=== PATIENT | female | born 1975 | race Two or more races ===

== ENCOUNTER 2025-01-24 17:56 | Inpatient (IN) | payer MEDICAID, OTHER ==
[~2025-01-24] VITALS: Ht 157.5 cm; Wt 72.2 kg
[2025-01-24] MEDS: ACETAMINOPHEN 325 MG TAB PO STA (18:30)
[2025-01-24] MEDS: ACETAMINOPHEN 500 MG TAB or CAP PO STA (18:30)
--- NOTE | 2025-01-24 18:51 | ED.PDOC ---
GI ASSESSMENT HPI Comments 49-year-old female presents with a chief complaint of abdominal pain, back pain, fever, and weakness x 3 days. Patient states that her pain is localized to her LLQ, radiates down her bilateral lower back, rates her pain a 10/10 and describes as cramping sensation. Patient denies any injuries or trauma prior to onset of symptoms. Patient denies nausea, vomiting, and diarrhea. Patient mentions that this pain feels similar to the last time she had a diverticulitis flare up. PMHx: Diverticulitis PSHx: Cholecystectomy, Tubal Ligation HPI: Poor Historian. REVIEW OF SYSTEMS: CONSTITUTIONAL: Denies acute: diaphoresis, chills, HEAD: Denies acute: headache, photophobia Eyes: Denies acute: Double vision, vision loss, eye pain, eye discharge. EARS: Denies acute: tinnitus, hearing loss, ear discharge, ear pain, THROAT: Denies acute: sore throat, swelling, difficulty swallowing , pain with swallowing, change in voice. NECK: Denies acute: neck pain, neck swelling, stiff neck. HEART: Denies acute : chest pain, palpitations, LUNGS: Denies acute: SOB, wheezing, cough, hemoptysis ABDOMEN: Denies acute: Nausea, Vomiting, diarrhea, melena , hematemesis, hematochezia SKIN: Denies acute: rash, redness, lesions, itchiness. EXTREMITIES: Denies acute: calf pain, numbness, tingling, weakness, denies pain in extremity. Neuro: Denies acute: focal neurological deficit, motor or sensory focal neurological deficit, tremors, seizure like activity, confusion, dizziness, change in mental status, loss of bowel or bladder function, cauda equina like symptoms. : Denies acute: dysuria, hematuria, flank pain, increase in urinary frequency. PSYCH: Denies acute: hallucination, suicidal ideation, homicidal ideation. FEMALE: Denies acute: abnormal vaginal bleeding, foul odor, unusual discharge. PHYSICAL EXAM: General: ---moderate-----acute distress, awake and alert. Head: normocephalic, atraumatic. Neck: supple, trachea is midline, no swelling. Throat: Normal phonation. Eyes:, no erythema, no purulent discharge, no proptosis, no icterus. Heart: regular tachycardic, no significant murmur appreciated. Lungs: no apparent respiratory distress, Able to speak in full sentences. No wheezing, no rhonchi, no crackles. No stridors Clear to auscultation bilaterally. Abdomen: Left upper and lower lower quadrant tender to palpation, non distended, soft, no guarding, no rebound, + bowel sounds. Neuro: Awake, Alert, oriented to name, self, situation, follows commands GCS=15. Speech is normal. Skin: no petechia, no purpura, no cyanosis, non-pale, not jaundice. Lower extremities: --no - Pitting edema no deformity, no focal swelling, no calf TTP. Makes eye contact. moves all four extremities. Face: no apparent facial droop. Left CVA tenderness to percussion Ambulating in the ED independently. No nuchal rigidity, Kernig's sign, Brudzinski's sign, no meningeal signs. ED COURSE: Chief Complaint: Abdominal Pain Time Seen by MD: 18:41 Primary Care Provider: STEPHANE Tan Notes: Medications, Allergies Allergies: Coded Allergies: NO KNOWN ALLERGIES (Unverified , 01/24/25) Home Meds No Active Prescriptions or Reported Meds Information Source: Patient Mode of Arrival: Ambulatory Past Medical History PAST MEDICAL HISTORY: Denies Surgical History: Cholecystectomy, Tubal Ligation RECRUITER History: Denies all RECRUITER Hx Family History Family History: Reviewed,noncontributory to illness Social History Smoker: Non-Smoker Alcohol: Denies ETOH Use Drugs: Denies Drug Use Lives In: Home Was a procedure done? Was a procedure done?: No GI differential Dx Differential Diagnosis: Other (DDX include Diverticulitis, colitis, gastroenteritis, acute abdomen, SBO, enteritis, constipation, volvulus, appendicitis, Gallbladder disease, choledocolithiasis, ascending cholangitis, pancreatitis, intraAbdominal mass/neoplasm, hepatitis, UTI, pylonephritis, kidney stone, aneurysm, dissection, Inflammatory bowel disease, gastroparesis, ischemic bowel, ovarian torsion, ovarian cyst/mass, tubo-ovarian abscess, , ectopic , PID, STD.) X-Ray, Labs, Meds, VS Vital Signs Date Time Temp Pulse Resp B/P (MAP) Pulse Ox O2 Delivery O2 Flow Rate FiO2 01/24/25 21:05 89 17 96 Room Air* 0 21 01/24/25 20:56 120/87 01/24/25 20:13 98.2 97 20 120/87 (98) 97 98.2 01/24/25 20:13 97 20 97 Room Air 01/24/25 18:30 101.3 01/24/25 18:17 101.3 115 16 139/95 (110) 96 101.3 Lab Test 01/24/25 18:48 01/24/25 18:14 Range/Units White Blood Count 12.3 H 4.4-10.8 10^3/uL Red Blood Count 4.65 4.0-5.20 10^6/uL Hemoglobin 12.9 12.2-16.2 g/dL Hematocrit 38.9 36.0-46.0 % Mean Corpuscular Volume 83.8 80.0-100.0 fL Mean Corpuscular Hemoglobin 27.7 L 28.0-32.0 pg Mean Corpuscular Hemoglobin Concent 33.0 32.0-36.0 g/dL Red Cell Distribution Width 14.3 11.8-14.3 % Platelet Count 324 140-450 10^3/uL Mean Platelet Volume 8.7 6.9-10.8 fL Neutrophils (%) (Auto) 76.3 37.0-80.0 % Lymphocytes (%) (Auto) 17.0 10.0-50.0 % Monocytes (%) (Auto) 5.9 0.0-12.0 % Eosinophils (%) (Auto) 0.4 0.0-7.0 % Basophils (%) (Auto) 0.4 0.0-2.0 % Neutrophils # (Auto) 9.4 H 1.6-8.6 10 ^3/uL Lymphocytes # (Auto) 2.1 0.4-5.4 10 ^3/uL Monocytes # (Auto) 0.7 0-1.3 10 ^3/uL Eosinophils # (Auto) 0 0-0.8 10 ^3/uL Basophils # (Auto) 0.1 0-0.2 10 ^3/uL Nucleated Red Blood Cells 0.0 % Sodium Level 139 136-145 mmol/L Potassium Level 3.7 3.5-5.1 mmol/L Chloride Level 103 98-107 mmol/L Carbon Dioxide Level 26 20-31 mmol/L Anion Gap 10 5-15 Blood Urea Nitrogen 9 9-23 mg/dL Creatinine 0.68 0.550-1.02 mg/dL Glomerular Filtration Rate Calc 108 >90 mL/min BUN/Creatinine Ratio 13.2 10.0-20.0 Serum Glucose 91 74-106 mg/dL Hemoglobin A1c 5.5 <5.7 % A1C Lactic Acid Level 0.8 0.4-2.0 mmol/L Calcium Level 9.8 8.7-10.4 mg/dL Total Bilirubin 1.0 0.2-1.0 mg/dL Aspartate Amino Transferase (AST) 38 13-40 U/L Alanine Aminotransferase (ALT) 95 H 7-40 U/L Alkaline Phosphatase 146 H 46-116 U/L Troponin I High Sensitivity < 3 L </=34 ng/L Total Protein 8.1 5.7-8.2 g/dL Albumin 4.7 3.2-4.8 g/dL Triglycerides Level 116 < 150 mg/dL Cholesterol Level 198 < 200 mg/dL LDL Cholesterol 146 H < 100 mg/dL HDL Cholesterol 41 40-59 mg/dL Lipase 30 12-53 U/L Urine Color Light-yellow Yellow Urine Clarity Clear Clear Urine pH 7.5 5.0-9.0 Urine Specific [place] 1.010 1.001-1.035 Urine Protein Negative Negative Urine Ketones Negative Negative Urine Blood 2+ H Negative /uL Urine Nitrite Negative Negative Urine Bilirubin Negative Negative Urine Urobilinogen Normal Negative mg/dL Urine Leukocyte Esterase Negative Negative /uL Urine RBC 34 0 - 4 /hpf Urine Microscopic WBC 1 0-5 /HPF Urine Squamous Epithelial Cells Few <5 /hpf Urine Bacteria Few H None Seen /hpf Urine Glucose Normal Normal mg/dL Urine Opiates Screen Neg NEGATIVE Urine Fentanyl Screen Neg NEGATIVE Urine Barbiturates Screen Neg NEGATIVE Urine Phencyclidine Screen Neg NEGATIVE Urine Amphetamines Screen Neg NEGATIVE Urine Benzodiazepines Screen Neg NEGATIVE Urine Cocaine Screen Neg NEGATIVE Urine Cannabinoids Screen Neg NEGATIVE Current Medications Medications (Trade) Dose Ordered Sig/Mickey Route Start Time Stop Time Status Last Admin Acetaminophen (Tylenol Tablet) 650 mg ONCE STAT PO 01/24/25 18:26 01/24/25 18:27 DC 01/24/25 18:30 Sodium Chloride 1,000 ml @ 1,000 mls/hr Q1H ONCE IV 01/24/25 18:45 01/24/25 19:44 DC 01/24/25 20:57 Ondansetron HCl (Zofran) 8 mg ONCE ONCE IV 01/24/25 18:45 01/24/25 18:53 DC 01/24/25 20:57 Fentanyl Citrate 100 mcg ONCE ONCE IV 01/24/25 18:45 01/24/25 18:53 DC 01/24/25 20:56 Ciprofloxacin 200 ml @ 200 mls/hr ONCE ONCE IV 01/24/25 19:30 01/24/25 20:29 DC 01/24/25 20:56 Metronidazole 100 ml @ 100 mls/hr ONCE ONCE IV 01/24/25 20:30 01/24/25 21:29 DC 01/24/25 20:56 [place] [id number] Ph: [phone] DIAGNOSTIC IMAGING Diagnostic Imaging Report : [id number] Signed PATIENT: LEXIE JEAN BAPTISTE ACCT: [id number] UNIT: [id number] : 1975 LOC: ER ROOM / BED: / AGE / SEX: 49 / F ADM STATUS: REG ER SERVICE [id number] ORDERING PHYSICIAN: GLENIS SANTOS DO PROCEDURE(s): ABPL - CT AB PEL WO CON-NO ORAL OR IV REASON: LLQ PAIN, ORDER NUMBER(s): [id number], ACCESSION NUMBER(s): [id number] Exam: CT CT AB PEL WO CON-NO ORAL OR IV History: LLQ PAIN, Comparison Study: None TECHNIQUE: Multidetector CT of the abdomen was performed from lung bases to pubic symphysis. Imaging was performed without IV contrast. Axial, coronal and sagittal multiplanar reformats were obtained from the axial data set by the technologist. Radiation Dose Information: CT Dose: CTDI volume is 19.98 mGy. Dose-length product is 1130.58 mGy*cm FINDINGS: Evaluation of solid organs is limited due to lack of intravenous contrast use. Findings: Lung Bases: No acute or significant lung base finding. Normal heart size. No pleural or pericardial effusion. Liver: The liver is normal in size. No focal lesions. Gallbladder and Biliary Tree: Gallbladder has been surgically removed. Spleen: Unremarkable Pancreas: The pancreas is grossly normal in appearance. Adrenal Glands: Unremarkable Kidneys: Kidneys are grossly normal without calculi or hydronephrosis. Bladder: Grossly unremarkable for degree of distention. Bowel: The stomach is grossly normal in appearance. Diverticuli in the descending left colon with stranding in the surrounding mesenteric fat suggesting diverticulitis. Air or free fluid. This is visualized in series 2 images 30- 46 The appendix is not visualized; however, no secondary findings of acute appendicitis identified. Ascites: Absent Lymphadenopathy: No mesenteric, retroperitoneal or periportal lymphadenopathy. Abdominal Wall and Mesentery: Unremarkable. Vasculature: The visualized abdominal aorta is normal in size and caliber. Evaluation of abdominal and pelvic vessels is limited due to lack of intravenous contrast. Pelvic Organs: Unremarkable Musculoskeletal: No aggressive focal bony lesions, acute fractures or dislocation. Soft tissues: Unremarkable IMPRESSION: 1. Uncomplicated diverticulitis mid left colon. There is no free air or free fluid. (series 2 images 30- 46). Radiation optimization: All CT scans at this facility use at least one of these dose optimization techniques: automated exposure control mA and/or kV adjustment per patient size (includes targeted exams where dose is matched to clinical indication) or iterative reconstruction. ATED BY: EDWIN RUIZ Jr., DO DICTATED DATE/TIME: 01/24/251957 SIGNED BY: EDWIN RUIZ Jr., SIGNED DATE/TIME: 01/24/251957 CC: Time of 1ST Reevaluation: 19:11 Reevaluation 1ST: Unchanged Patient Education/Counseling: Diagnosis, Treatment Family Education/Counseling: No Family Present Comments Patient presented with the above HPI.-abdominal pain-----workup was initiated. patient was found with the above mentioned diagnosis. the following medications were ordered: please refer to order lists of meds and tests obtained by myself Dr. Santos. Patient ED course and VS have been stabilized. Patient has been reassessed in the ED and remained in a stable condition. Pertinent incidental findings were discussed with the patient and/or family. Patient/family voices understanding and is agreeable with plan. Patient has been observed in the ED adequate length of time to insure improvement/stability. Escalation of care considered: Consideration of escalation to observation or admission Sepsis protocol was initiated with weight based fluid resuscitation. Patient was ADMITTED to the medicine team for further evaluation and treatment of their presentation. All the reports of any imaging studies that were ordered by myself were reviewed by myself. Departure 1 Departure Time of Disposition: 19:27 Impression: Primary Impression: Sepsis Additional Impressions: Fever Diverticulitis of intestine Disposition: ADMITTED INPATIENT Admit to: Tele Condition: Guarded e-Prescriptions No Active Prescriptions or Reported Meds Discharged With: Self Critical Care Note Critical Care Time?: Yes (45 min-critical care time only) Heart Score Heart Score: Heart Score Response (Comments) Value History Slightly Suspicious 0 EKG Normal 0 Age 45-64 1 Risk Factors No known risk factors 0 Troponin Normal limit 0 Total 1 I personally scribed for GLENIS SANTOS DO ([email or web address]) on 01/24/25 at 18:50. Electronically submitted by Dilip Mobley ([email or web address]). GLENIS SANTOS DO Jan 24, 2025 18:50
[2025-01-24 19:22] LABS: Basophils # (auto) 0.1 10 ^3/uL (0-0.2); Basophils % (auto) 0.4 % (0.0-2.0); Eosinophils # (auto) 0 10 ^3/uL (0-0.8); Eosinophils % (auto) 0.4 % (0.0-7.0); Hematocrit 38.9 % (36.0-46.0); Hemoglobin 12.9 g/dL (12.2-16.2); Lymphocytes # (auto) 2.1 10 ^3/uL (0.4-5.4); Mean Corpuscular Hemoglobin 27.7 pg (28.0-32.0); Mean Corpuscular Volume 83.8 fL (80.0-100.0); Monocytes # (auto) 0.7 10 ^3/uL (0-1.3); Monocytes % (auto) 5.9 % (0.0-12.0); Neutrophils # (auto) 9.4 10 ^3/uL (1.6-8.6); Neutrophils % (auto) 76.3 % (37.0-80.0); Platelet Count (auto) 324 10^3/uL (140-450); Red Blood Cells 4.65 10^6/uL (4.0-5.20); Red Cell Distribution Width 14.3 % (11.8-14.3); White Blood Cell 12.3 10^3/uL (4.4-10.8)
[2025-01-24 19:46] LABS: Albumin 4.7 g/dL (3.2-4.8); Anion Gap 10 (5-15); Aspartate Aminotransferase 38 U/L (13-40); BUN/Creatinine Ratio 13.2 (10.0-20.0); Calcium 9.8 mg/dL (8.7-10.4); Carbon Dioxide 26 mmol/L (20-31); Chloride 103 mmol/L (98-107); Glucose 91 mg/dL (74-106); Potassium 3.7 mmol/L (3.5-5.1); Sodium 139 mmol/L (136-145); Total Protein 8.1 g/dL (5.7-8.2)
[2025-01-24 19:48] LABS: Alanine Aminotransferase 95 U/L (7-40); Alkaline Phosphatase 146 U/L (46-116); Blood Urea Nitrogen 9 mg/dL (9-23)
[2025-01-24 19:59] LABS: Lipase 30 U/L (12-53)
--- NOTE | 2025-01-24 20:00 | DVH ---
Exam: CT CT AB PEL WO CON-NO ORAL OR IV History: LLQ PAIN, Comparison Study: None TECHNIQUE: Multidetector CT of the abdomen was performed from lung bases to pubic symphysis. Imaging was performed without IV contrast. Axial, coronal and sagittal multiplanar reformats were obtained fr om the axial data set by the technologist. Radiation Dose Information: CT Dose: CTDI volume is 19.98 mGy. Dose-length product is 1130.58 mGy*cm FINDINGS: Evaluation of solid organs is limited due to lack of intravenous contrast use. Findings: Lung Bases: No acute or significant lung base finding. Normal heart size. No pleural or pericardial effusion. Liver: The liver is normal in size. No focal lesions. Gallbladder and Biliary Tree: Gallbladder has been surgically removed. Spleen: Unremarkable Pancreas: The pancreas is grossly normal in appearance. Adrenal Glands: Unremarkable Kidneys: Kidneys are grossly normal without calculi or hydronephrosis. Bladder: Grossly unremarkable for degree of distention. Bowel: The stomach is grossly normal in appearance. Diverticuli in the descending left colon with str anding in the surrounding mesenteric fat suggesting diverticulitis. Air or free fluid. This is visual ized in series 2 images 30- 46 The appendix is not visualized; however, no secondary findings of acu te appendicitis identified. Ascites: Absent Lymphadenopathy: No mesenteric, retroperitoneal or periportal lymphadenopathy. Abdominal Wall and Mesentery: Unremarkable. Vasculature: The visualized abdominal aorta is normal in size and caliber. Evaluation of abdominal a nd pelvic vessels is limited due to lack of intravenous contrast. Pelvic Organs: Unremarkable Musculoskeletal: No aggressive focal bony lesions, acute fractures or dislocation. Soft tissues: Unremarkable IMPRESSION: 1. Uncomplicated diverticulitis mid left colon. There is no free air or free fluid. (series 2 images 30- 46). Radiation optimization: All CT scans at this facility use at least one of these dose optimization cruzito hniques: automated exposure control mA and/or kV adjustment per patient size (includes targeted exam s where dose is matched to clinical indication) or iterative reconstruction.
[2025-01-24 20:16] LABS: Urine Bacteria FEW /hpf (None Seen); Urine Blood 2+ /uL (Negative); Urine Clarity Clear (Clear); Urine Color Light-Yellow (Yellow); Urine Protein, UAD Negative (Negative); Urine Squamous Epithelial Cell FEW /hpf (<5); Urine Urobilinogen Normal (Negative); Urine WBC 1 /HPF (0-5); Urine pH 7.5 (5.0-9.0)
[2025-01-24] MEDS: CIPROFLOXACIN 400MG/200ML 200 ML IV ONE (20:56)
[2025-01-24] MEDS: fentaNYL CITRATE 100 MCG/2 ML VL IV ONE (20:56)
[2025-01-24] MEDS: metroNIDAZOLE 500MG/100ML 100 ML IV ONE (20:56)
[2025-01-24] MEDS: ONDANSETRON HCL 4 MG/2 ML VIAL IV ONE (20:57)
[2025-01-24] MEDS: SODIUM CHLORIDE 0.9% 1,000 ML IV ONE ×3 (20:57→21:55)
[2025-01-24 21:05] VITALS: PULSE 89; RESP 17; O2SAT 96
[2025-01-24] MEDS ORDERED: HYDROcodone-ACET 5/325MG TAB PO PRN (21:30)
[2025-01-24] MEDS ORDERED: SODIUM CHLORIDE 0.9% 1,000 ML IV SCH (21:30)
--- NOTE | 2025-01-24 21:44 | DVHHPRES ---
History of Present Illness Resident Creating Document: YUNIOR AQUINO RESIDENT History of Present Illness This is a 49-year-old female with past medical history of diverticulitis (last flare was eight months ago), who presented to the ED with chief complaint of left lower quadrant pain. The patient states that the symptoms started three days ago consistent with left lower quadrant pain that progressively got worse associated with fever and chills that prompted this visit. The patient describes the pain as a cramping type of pain rated as an 8/10 on the pain scale that radiates to words bilateral flanks and lower back. Patient states that sitting in the chair worsens the pain and improves when lying down. The patient also reported associated nausea without vomiting and difficulty catching her breath due to pain when taking deep breaths. Patient denies chest pain, lower extremity swelling, headache, dizziness or any other associated symptoms. Upon admission, initial labs showed elevated WBC at 12.3 and normal CMP with negative troponins and normal range lipase. Urinalysis came back showing hematuria. CT scan of the abdomen showed uncomplicated diverticulitis of the mid left colon. We will start the patient on IV antibiotics, IV fluids, we will place the patient NPO and admit the patient for further assessment and management. Past medical history: History of diverticulitis Home medications: None Surgical history: Cholecystectomy, , lipoma removal from the lower back Social history: Denies consumption of drugs, alcohol or smoking. Lives with family GI: Diverticulosis Past Surgical History: Cholecystectomy, Family History: None Smoke: No ALCOHOL: none Drugs: None Lives: with Family Domestic Violence: Neg Review of Systems Constitutional: Yes: Fever, Chills; No: Sweats, Weakness, Malaise, Other Eyes: No: Pain, Vision change, Conjunctivae inflammation, Eyelid inflammation, Other, Redness ENT: No: Ear pain, Ear discharge, Nose pain, Nose discharge, Nose congestion, Mouth pain, Mouth swelling, Throat pain, Throat swelling, Other Respiratory: Shortness of breath; No: Cough, Dry, SOB with excertion, Wheezing, Hemoptysis, Pleuritic Pain, Sputum, Wheezing, Other Cardiovascular: No: Chest Pain, Palpitations, Orthopnea, Paroxysmal Noc. Dyspnea, Edema, Lt Headedness, Other Gastrointestinal: Nausea, Abdominal Pain; No: Vomiting, Diarrhea, Constipation, Melena, Hematochezia, Other Genitourinary: No Dysuria, No Frequency, No Incontinence, No Hematuria, No Retention, No Other Musculoskeletal: No: other, neck pain, shoulder pain, arm pain, back pain, hand pain, leg pain, foot pain Skin: No: Rash, Lesions, Jaundice, Bruising, Other Neurological: Weakness; No: Numbness, Incoordination, Change in speech, Confusion, Seizures, Other Allergies: Coded Allergies: NO KNOWN ALLERGIES (Unverified , 01/24/25) Exam Vital Signs Vital Signs Date Time Temp Pulse Resp B/P (MAP) Pulse Ox O2 Delivery O2 Flow Rate FiO2 01/24/25 21:05 89 17 96 Room Air* 0 21 01/24/25 20:56 120/87 01/24/25 20:13 98.2 98.2 General Appearance: Alert, Oriented X3, Cooperative, moderate distress HEENT: Atraumatic, PERRLA, EOMI, Mucous membr. moist/pink Respiratory: Clear to auscultation, Normal air movement Cardiovascular: Regular rate, Normal S1, Normal S2, No murmurs Abdominal: Normal bowel sounds, Soft, Other (There is pain to palpation of the left lower quadrant and slightly diffuse in the periumbilical region) Extremities: No clubbing, No cyanosis, No edema, Normal pulses, No tenderness/swelling Skin: No rashes, No breakdown, No significant lesion Neuro: Normal gait, Normal speech, Strength at 5/5 X4 ext, Normal tone, Sensation intact, Cranial nerves 3-12 NL, Reflexes 2+ Psych/Mental Status: Mental status NL, Mood NL Labs/Xrays Labs Test 01/24/25 18:48 01/24/25 18:14 Range/Units White Blood Count 12.3 H 4.4-10.8 10^3/uL Red Blood Count 4.65 4.0-5.20 10^6/uL Hemoglobin 12.9 12.2-16.2 g/dL Hematocrit 38.9 36.0-46.0 % Mean Corpuscular Volume 83.8 80.0-100.0 fL Mean Corpuscular Hemoglobin 27.7 L 28.0-32.0 pg Mean Corpuscular Hemoglobin Concent 33.0 32.0-36.0 g/dL Red Cell Distribution Width 14.3 11.8-14.3 % Platelet Count 324 140-450 10^3/uL Mean Platelet Volume 8.7 6.9-10.8 fL Neutrophils (%) (Auto) 76.3 37.0-80.0 % Lymphocytes (%) (Auto) 17.0 10.0-50.0 % Monocytes (%) (Auto) 5.9 0.0-12.0 % Eosinophils (%) (Auto) 0.4 0.0-7.0 % Basophils (%) (Auto) 0.4 0.0-2.0 % Neutrophils # (Auto) 9.4 H 1.6-8.6 10 ^3/uL Lymphocytes # (Auto) 2.1 0.4-5.4 10 ^3/uL Monocytes # (Auto) 0.7 0-1.3 10 ^3/uL Eosinophils # (Auto) 0 0-0.8 10 ^3/uL Basophils # (Auto) 0.1 0-0.2 10 ^3/uL Nucleated Red Blood Cells 0.0 % Sodium Level 139 136-145 mmol/L Potassium Level 3.7 3.5-5.1 mmol/L Chloride Level 103 98-107 mmol/L Carbon Dioxide Level 26 20-31 mmol/L Anion Gap 10 5-15 Blood Urea Nitrogen 9 9-23 mg/dL Creatinine 0.68 0.550-1.02 mg/dL Glomerular Filtration Rate Calc 108 >90 mL/min BUN/Creatinine Ratio 13.2 10.0-20.0 Serum Glucose 91 74-106 mg/dL Lactic Acid Level 0.8 0.4-2.0 mmol/L Calcium Level 9.8 8.7-10.4 mg/dL Total Bilirubin 1.0 0.2-1.0 mg/dL Aspartate Amino Transferase (AST) 38 13-40 U/L Alanine Aminotransferase (ALT) 95 H 7-40 U/L Alkaline Phosphatase 146 H 46-116 U/L Troponin I High Sensitivity < 3 L </=34 ng/L Total Protein 8.1 5.7-8.2 g/dL Albumin 4.7 3.2-4.8 g/dL Lipase 30 12-53 U/L Urine Color Light-yellow Yellow Urine Clarity Clear Clear Urine pH 7.5 5.0-9.0 Urine Specific [place] 1.010 1.001-1.035 Urine Protein Negative Negative Urine Ketones Negative Negative Urine Blood 2+ H Negative /uL Urine Nitrite Negative Negative Urine Bilirubin Negative Negative Urine Urobilinogen Normal Negative mg/dL Urine Leukocyte Esterase Negative Negative /uL Urine RBC 34 0 - 4 /hpf Urine Microscopic WBC 1 0-5 /HPF Urine Squamous Epithelial Cells Few <5 /hpf Urine Bacteria Few H None Seen /hpf Urine Glucose Normal Normal mg/dL Assessment/Plan Assessment/Plan Assessment/plan Acute left lower quadrant pain likely due to acute diverticulitis Acute diverticulitis of the mid left colon Sepsis due to above -Leukocytosis, fever and tachycardia -ordered lactic acid -CT scan of the abdomen and pelvis showed uncomplicated diverticulitis in the mid left colon -Place patient NPO -Start IV fluids NS 0.9% at 100cc/hr -start IV metronidazole -start IV ciprofloxacin -Monitor CBC and labs diver pumper Goals of care discussed with the patient at bedside for >35min, FULL CODE Plan discussed with Dr. Montes Plan discussed with: Patient Date of Service: Jan 24, 2025 Billing Provider: SHANTEL MONTES MD Common Visit Codes: 21406-[id number] INP/OBS CARE (HIGH) Secondary Visit Codes: 62436-[id number] CARE PLAN 30 MINUTES YUNIOR AQUINO RESIDENT Jan 24, 2025 21:44
[2025-01-24 21:51] LABS: Triglycerides 116 mg/dL (< 150)
[2025-01-24 21:53] LABS: Cholesterol 198 mg/dL (< 200); HDL Cholesterol 41 mg/dL (40-59)
[2025-01-24 22:10] LABS: LDL Cholesterol 146 mg/dL (< 100)
[2025-01-24 22:10] LABS: Amphetamine Screen, Urine Neg (NEGATIVE); Barbiturate Scree,Urine Neg (NEGATIVE); Benzodiazephine Screen, Urine Neg (NEGATIVE); Cannabinoid Screen, Urine Neg (NEGATIVE); Cocaine Screen, Urine Neg (NEGATIVE); Opiate Scree,Urine Neg (NEGATIVE); Phencyclidine Screen, Urine Neg (NEGATIVE)
[2025-01-24] MEDS: SODIUM CHLORIDE 0.9% 1,000 ML IV SCH (22:30)
[2025-01-25] VITALS (7 sets, daily range): BP systolic 103–126; BP diastolic 68–89; PULSE 61–76; RESP 16–18; TEMP 97.6–97.8; O2SAT 93–96
[2025-01-25] MEDS: metroNIDAZOLE 500MG/100ML 100 ML IV SCH (05:43)
[2025-01-25 06:34] LABS: Basophils # (auto) 0 10 ^3/uL (0-0.2); Basophils % (auto) 0.3 % (0.0-2.0); Eosinophils # (auto) 0.1 10 ^3/uL (0-0.8); Eosinophils % (auto) 0.6 % (0.0-7.0); Hemoglobin 10.9 g/dL (12.2-16.2); Lymphocytes # (auto) 1.8 10 ^3/uL (0.4-5.4); Lymphocytes % (auto) 18.9 % (10.0-50.0); Mean Corpuscular Hemoglobin 27.8 pg (28.0-32.0); Mean Corpuscular Hgb Conc. 32.9 g/dL (32.0-36.0); Mean Corpuscular Volume 84.4 fL (80.0-100.0); Monocytes # (auto) 0.6 10 ^3/uL (0-1.3); Monocytes % (auto) 6.2 % (0.0-12.0); Nucleated Red Blood Cells % 0.1 %; Platelet Count (auto) 285 10^3/uL (140-450); Red Blood Cells 3.91 10^6/uL (4.0-5.20); Red Cell Distribution Width 14.5 % (11.8-14.3); White Blood Cell 9.5 10^3/uL (4.4-10.8)
[2025-01-25 06:54] LABS: Anion Gap 8 (5-15); Carbon Dioxide 26 mmol/L (20-31); Sodium 141 mmol/L (136-145)
[2025-01-25 06:58] LABS: Calcium 8.5 mg/dL (8.7-10.4); Chloride 107 mmol/L (98-107)
[2025-01-25 07:00] LABS: BUN/Creatinine Ratio 14.8 (10.0-20.0); Glucose 95 mg/dL (74-106)
[2025-01-25 07:03] LABS: Blood Urea Nitrogen 8 mg/dL (9-23)
[2025-01-25] MEDS: ACETAMINOPHEN 325 MG TAB PO PRN (08:25)
[2025-01-25] MEDS: CIPROFLOXACIN 400MG/200ML 200 ML IV SCH (08:25)
[2025-01-25] MEDS: METOCLOPRAMIDE HCL 5MG/ml INJ 2ml VIAL IV PRN (09:39)
[2025-01-25] MEDS ORDERED: ONDANSETRON HCL 4 MG/2 ML VIAL IV PRN (10:00)
--- NOTE | 2025-01-25 17:11 | DVHPNRES ---
Progress Note Date Seen: Jan 25, 2025 Resident Creating Document: CRYSTAL LINN RESIDENT Medical Necessity Reason Pt with a Central, PICC or Fol: No Subjective Review of Systems 49-year-old female with past medical history of diverticulitis (last flare was eight months ago), who presented to the ED with chief complaint of left lower quadrant pain. The patient states that the symptoms started three days ago consistent with left lower quadrant pain that progressively got worse associated with fever and chills that prompted this visit. The patient describes the pain as a cramping type of pain rated as an 8/10 on the pain scale that radiates to words bilateral flanks and lower back. Patient states that sitting in the chair worsens the pain and improves when lying down. The patient also reported associated nausea without vomiting and difficulty catching her breath due to pain when taking deep breaths. Patient denies chest pain, lower extremity swelling, headache, dizziness or any other associated symptoms. Upon admission, initial labs showed elevated WBC at 12.3 and normal CMP with negative troponins and normal range lipase. CONSTITUTIONAL: Denies weight loss, fever and chills. HEENT: Denies changes in vision and hearing. RESPIRATORY: Shortness of breath CV: Denies palpitations and chest pain. GI: Nausea, Abdominal Pain; : Denies dysuria and urinary frequency. MSK: Denies myalgia and joint pain. SKIN: Denies rash and pruritus. NEUROLOGICAL: Denies headache Objective vital signs Vital Sign Date Time Temp Pulse Resp B/P (MAP) Pulse Ox O2 Delivery O2 Flow Rate FiO2 01/25/25 13:00 97.8 63 17 106/68 (81) 95 97.8 01/25/25 08:00 Room Air* 0 21 Total Intake and Output 01/24/25 01/24/25 01/25/25 15:00 23:00 07:00 Intake Total 500 ml Balance 500 ml medications Current Medications Medications Dose Ordered Sig/Mickey Route Start Time Stop Time Status Last Admin Dose Admin Acetaminophen 650 mg Q6HP PRN PO 01/24/25 21:30 01/25/25 08:25 650 MG Acetaminophen/ Hydrocodone Bitart 1 tab Q4HP PRN PO 01/24/25 21:30 Ciprofloxacin 200 ml @ 200 mls/hr BID IV 01/25/25 10:00 01/25/25 08:25 200 MLS/HR Metronidazole 100 ml @ 100 mls/hr Q8H IV 01/25/25 05:00 01/25/25 12:47 100 MLS/HR Sodium Chloride 1,000 ml @ 100 mls/hr Q10H IV 01/24/25 21:45 01/25/25 16:52 100 MLS/HR Metoclopramide HCl 5 mg Q8HPRN PRN IV 01/24/25 21:45 01/25/25 09:39 5 MG Ondansetron HCl 4 mg Q4HPRN PRN IV 01/25/25 10:00 Examination GENERAL: Not in acute distress. HEENT: EOMI, Moist mucous membranes. No scleral icterus. No cervical lymphadenopathy. LUNGS: Clear to auscultation bilaterally. No accessory muscle use. CARDIOVASCULAR: Regular rate and rhythm. No murmur. No JVD. ABDOMEN: Tenderness to palpation of the left lower quadrant and slightly diffuse in the periumbilical region. EXTREMITIES: No edema. Nontender. SKIN: No rashes or lesions. Warm. NEUROLOGIC: Alert and oriented X3 laboratory and microbiology Laboratory Tests 01/25/25 05:11 Test 01/25/25 05:11 Range/Units Serum Glucose 95 74-106 mg/dL Problem List/Assessment/Plan Problem List/Assessment/Plan # Sepsis due to acute diverticulitis # intractable abdominal pain due to diverticulitis # Acute diverticulitis of the mid left colon -Leukocytosis, fever and tachycardia -ordered lactic acid -CT scan of the abdomen and pelvis showed uncomplicated diverticulitis in the mid left colon -advance diet to clear liquid -Start IV fluids NS 0.9% at 100cc/hr -start IV metronidazole -start IV ciprofloxacin Goal of care discussed with patient for 27 minutes: Full code Plan discussed with Dr. Howell Plan discussed with: Patient My Orders My Orders Orders - CRYSTAL LINN RESIDENT Procedure Category Date Status Time Ondansetron Hcl PHA 01/25/25 In Process (Zofran) 10:00 Clear Liq Diet DIET 01/25/25 Transmitted Dinner Date of Service: Jan 25, 2025 Billing Provider: STEPHEN HOWELL MD Common Visit Codes: [id number] INP/OBS CARE(HIGH) Secondary Visit Codes: [id number] CARE PLAN 30 MINUTES CRYSTAL LINN RESIDENT Jan 25, 2025 17:11 STEPHEN HOWELL MD Jan 25, 2025 20:50
[2025-01-26] VITALS (7 sets, daily range): BP systolic 101–143; BP diastolic 65–98; PULSE 67–87; RESP 17–18; TEMP 96.8–98.2; O2SAT 94–96
[2025-01-26] MEDS: PANTOPRAZOLE 40 MG/10 ML VIAL INJ IV SCH (10:29)
[2025-01-26 11:05] LABS: Hepatitis B Surface Antigen Negative (Negative); Hepatitis C Antibody Negative (Negative)
[2025-01-26 12:07] LABS: Anion Gap 9 (5-15); Carbon Dioxide 27 mmol/L (20-31); Chloride 106 mmol/L (98-107); Sodium 142 mmol/L (136-145)
[2025-01-26 12:08] LABS: Calcium 9.7 mg/dL (8.7-10.4)
[2025-01-26 12:10] LABS: Potassium 3.5 mmol/L (3.5-5.1)
[2025-01-26 12:13] LABS: BUN/Creatinine Ratio 10.9 (10.0-20.0); Glucose 84 mg/dL (74-106)
[2025-01-26 12:21] LABS: Blood Urea Nitrogen 7 mg/dL (9-23)
[2025-01-26 12:27] LABS: Basophils # (auto) 0.1 10 ^3/uL (0-0.2); Basophils % (auto) 0.7 % (0.0-2.0); Eosinophils # (auto) 0.2 10 ^3/uL (0-0.8); Eosinophils % (auto) 2.2 % (0.0-7.0); Hematocrit 37.4 % (36.0-46.0); Hemoglobin 12.3 g/dL (12.2-16.2); Lymphocytes # (auto) 1.7 10 ^3/uL (0.4-5.4); Mean Corpuscular Hemoglobin 27.7 pg (28.0-32.0); Mean Corpuscular Hgb Conc. 32.8 g/dL (32.0-36.0); Mean Corpuscular Volume 84.6 fL (80.0-100.0); Monocytes # (auto) 0.6 10 ^3/uL (0-1.3); Monocytes % (auto) 7.4 % (0.0-12.0); Neutrophils # (auto) 5.3 10 ^3/uL (1.6-8.6); Neutrophils % (auto) 67.7 % (37.0-80.0); Nucleated Red Blood Cells % 0.2 %; Platelet Count (auto) 331 10^3/uL (140-450); Red Blood Cells 4.42 10^6/uL (4.0-5.20); White Blood Cell 7.9 10^3/uL (4.4-10.8)
--- NOTE | 2025-01-26 15:37 | DVHPNRES ---
Progress Note Date Seen: Jan 26, 2025 Resident Creating Document: CRYSTAL LINN RESIDENT Medical Necessity Reason Pt with a Central, PICC or Fol: No Subjective Review of Systems Patient seen and examined at bedside, patient has no abdominal pain right now, patient has mild heartburn. Objective vital signs Vital Sign Date Time Temp Pulse Resp B/P (MAP) Pulse Ox O2 Delivery O2 Flow Rate FiO2 01/26/25 12:41 96.8 71 18 127/97 (107) 96 96.8 01/26/25 08:05 Room Air* 0 21 Total Intake and Output 01/25/25 01/25/25 01/26/25 15:00 23:00 07:00 Intake Total 300 ml 450 ml 900 ml Balance 300 ml 450 ml 900 ml medications Current Medications Medications Dose Ordered Sig/Mickey Route Start Time Stop Time Status Last Admin Dose Admin Acetaminophen 650 mg Q6HP PRN PO 01/24/25 21:30 01/25/25 19:35 650 MG Acetaminophen/ Hydrocodone Bitart 1 tab Q4HP PRN PO 01/24/25 21:30 Ciprofloxacin 200 ml @ 200 mls/hr BID IV 01/25/25 10:00 01/26/25 09:51 200 MLS/HR Metronidazole 100 ml @ 100 mls/hr Q8H IV 01/25/25 05:00 01/26/25 13:44 100 MLS/HR Sodium Chloride 1,000 ml @ 100 mls/hr Q10H IV 01/24/25 21:45 01/25/25 16:52 100 MLS/HR Metoclopramide HCl 5 mg Q8HPRN PRN IV 01/24/25 21:45 01/26/25 09:51 5 MG Ondansetron HCl 4 mg Q4HPRN PRN IV 01/25/25 10:00 Pantoprazole Sodium 40 mg DAILY IV 01/26/25 10:00 01/26/25 10:29 40 MG Sucralfate 1 gm BID PRN PO 01/26/25 15:45 UNV Docusate Sodium 100 mg DAILYPRN PRN PO 01/26/25 15:45 UNV Examination GENERAL: Not in acute distress. HEENT: EOMI, Moist mucous membranes. No scleral icterus. No cervical lymphadenopathy. LUNGS: Clear to auscultation bilaterally. No accessory muscle use. CARDIOVASCULAR: Regular rate and rhythm. No murmur. No JVD. ABDOMEN: Tenderness to palpation of the left lower quadrant and slightly diffuse in the periumbilical region. EXTREMITIES: No edema. Nontender. SKIN: No rashes or lesions. Warm. NEUROLOGIC: Alert and oriented X3 laboratory and microbiology Laboratory Tests 01/26/25 11:38 Test 01/26/25 11:38 Range/Units Serum Glucose 84 74-106 mg/dL Microbiology Date/Time Source Procedure Growth Status 01/24/25 19:44 Blood Blood Culture - Preliminary NO GROWTH AFTER 24 HOURS OF INCUBATION. Resulted Problem List/Assessment/Plan Problem List/Assessment/Plan # Sepsis due to acute diverticulitis # intractable abdominal pain due to diverticulitis # Acute diverticulitis of the mid left colon -Leukocytosis, fever and tachycardia -ordered lactic acid -CT scan of the abdomen and pelvis showed uncomplicated diverticulitis in the mid left colon -advance diet to soft diet -Cont. IV fluids NS 0.9% at 100cc/hr -Cont. IV metronidazole -Cont. IV ciprofloxacin Goal of care discussed with patient for 17 minutes: Full code Plan discussed with Dr. Howell Plan discussed with: Patient My Orders My Orders Orders - CRYSTAL LINN RESIDENT Procedure Category Date Status Time Pantoprazole PHA 01/26/25 In Process (Protonix) 10:00 Soft Diet DIET 01/26/25 Transmitted Dinner Sucralfate Susp PHA 01/26/25 Logged (Carafate Susp) 15:45 Docusate Sodium PHA 01/26/25 Logged Capsule (Colace 15:45 Date of Service: Jan 26, 2025 Billing Provider: STEPHEN HOWELL MD Common Visit Codes: [id number] INP/OBS CARE(HIGH) CRYSTAL LINN RESIDENT Jan 26, 2025 15:37 STEPHEN HOWELL MD Jan 27, 2025 21:52
[2025-01-26] MEDS: DOCUSATE SOD 100 MG CAP PO PRN (16:29)
[2025-01-26] MEDS: SUCRALFATE 1 GM/10 ML ORAL SUSP PO PRN (20:43)
[2025-01-27 01:00] VITALS: BP_SYST 108; BP_SYST 142; BP_DIAS 73; BP_DIAS 75; PULSE 52; PULSE 82; RESP 17; RESP 18; TEMP 95.6; TEMP 96.3; O2SAT 94; O2SAT 96
[2025-01-27 05:00] VITALS: BP 106/77; PULSE 82; RESP 18; TEMP 97; O2SAT 91
[2025-01-27 08:00] VITALS: PULSE 72; RESP 17; O2SAT 93
[2025-01-27 09:00] VITALS: BP 126/90; PULSE 72; RESP 17; TEMP 96.7; O2SAT 93
[2025-01-27] MEDS ORDERED: METR-344 PO (11:03)
[2025-01-27] MEDS ORDERED: PANT40TA2 PO (11:03)
[2025-01-27] MEDS ORDERED: CIPR-173 PO (11:03)
--- NOTE | 2025-01-27 11:11 | DVHDSRES ---
Discharge Summary Date of Admission Resident Creating Document: CRYSTAL LINN RESIDENT Jan 24, 2025 at 21:22 Date of Discharge: Jan 27, 2025 Admitting Diagnosis Sepsis due to acute diverticulitis Labs/Diagnostic Data: Laboratory Results Test 01/26/25 11:38 01/25/25 05:11 01/24/25 18:48 01/24/25 18:14 White Blood Count 7.9 10^3/uL (4.4-10.8) Red Blood Count 4.42 10^6/uL (4.0-5.20) Hemoglobin 12.3 g/dL (12.2-16.2) Hematocrit 37.4 % (36.0-46.0) Mean Corpuscular Volume 84.6 fL (80.0-100.0) Mean Corpuscular Hemoglobin 27.7 pg (28.0-32.0) Mean Corpuscular Hemoglobin Concent 32.8 g/dL (32.0-36.0) Red Cell Distribution Width 14.0 % (11.8-14.3) Platelet Count 331 10^3/uL (140-450) Mean Platelet Volume 8.9 fL (6.9-10.8) Neutrophils (%) (Auto) 67.7 % (37.0-80.0) Lymphocytes (%) (Auto) 22.0 % (10.0-50.0) Monocytes (%) (Auto) 7.4 % (0.0-12.0) Eosinophils (%) (Auto) 2.2 % (0.0-7.0) Basophils (%) (Auto) 0.7 % (0.0-2.0) Neutrophils # (Auto) 5.3 10 ^3/uL (1.6-8.6) Lymphocytes # (Auto) 1.7 10 ^3/uL (0.4-5.4) Monocytes # (Auto) 0.6 10 ^3/uL (0-1.3) Eosinophils # (Auto) 0.2 10 ^3/uL (0-0.8) Basophils # (Auto) 0.1 10 ^3/uL (0-0.2) Nucleated Red Blood Cells 0.2 % Sodium Level 142 mmol/L (136-145) Potassium Level 3.5 mmol/L (3.5-5.1) Chloride Level 106 mmol/L (98-107) Carbon Dioxide Level 27 mmol/L (20-31) Anion Gap 9 (5-15) Blood Urea Nitrogen 7 mg/dL (9-23) Creatinine 0.64 mg/dL (0.550-1.02) Glomerular Filtration Rate Calc 110 mL/min (>90) BUN/Creatinine Ratio 10.9 (10.0-20.0) Serum Glucose 84 mg/dL (74-106) Calcium Level 9.7 mg/dL (8.7-10.4) Hepatitis B Surface Antigen Negative (Negative) Hepatitis C Antibody Negative (Negative) Hemoglobin A1c 5.5 % A1C (<5.7) Lactic Acid Level 0.8 mmol/L (0.4-2.0) Total Bilirubin 1.0 mg/dL (0.2-1.0) Aspartate Amino Transferase (AST) 38 U/L (13-40) Alanine Aminotransferase (ALT) 95 U/L (7-40) Alkaline Phosphatase 146 U/L (46-116) Troponin I High Sensitivity < 3 ng/L (</=34) Total Protein 8.1 g/dL (5.7-8.2) Albumin 4.7 g/dL (3.2-4.8) Triglycerides Level 116 mg/dL (< 150) Cholesterol Level 198 mg/dL (< 200) LDL Cholesterol 146 mg/dL (< 100) HDL Cholesterol 41 mg/dL (40-59) Lipase 30 U/L (12-53) Urine Color Light-yellow (Yellow) Urine Clarity Clear (Clear) Urine pH 7.5 (5.0-9.0) Urine Specific [place] 1.010 (1.001-1.035) Urine Protein Negative (Negative) Urine Ketones Negative (Negative) Urine Blood 2+ /uL (Negative) Urine Nitrite Negative (Negative) Urine Bilirubin Negative (Negative) Urine Urobilinogen Normal mg/dL (Negative) Urine Leukocyte Esterase Negative /uL (Negative) Urine RBC 34 /hpf (0 - 4) Urine Microscopic WBC 1 /HPF (0-5) Urine Squamous Epithelial Cells Few /hpf (<5) Urine Bacteria Few /hpf (None Seen) Urine Glucose Normal mg/dL (Normal) Urine Opiates Screen Neg (NEGATIVE) Urine Fentanyl Screen Neg (NEGATIVE) Urine Barbiturates Screen Neg (NEGATIVE) Urine Phencyclidine Screen Neg (NEGATIVE) Urine Amphetamines Screen Neg (NEGATIVE) Urine Benzodiazepines Screen Neg (NEGATIVE) Urine Cocaine Screen Neg (NEGATIVE) Urine Cannabinoids Screen Neg (NEGATIVE) Other Laboratory Tests 01/26/25 11:38 Brief Hx & Hospital Course: HPI: 49-year-old female with past medical history of diverticulitis (last flare was eight months ago), who presented to the ED with chief complaint of left lower quadrant pain. The patient states that the symptoms started three days ago consistent with left lower quadrant pain that progressively got worse associated with fever and chills that prompted this visit. The patient describes the pain as a cramping type of pain rated as an 8/10 on the pain scale that radiates to words bilateral flanks and lower back. Patient states that sitting in the chair worsens the pain and improves when lying down. The patient also reported associated nausea without vomiting and difficulty catching her breath due to pain when taking deep breaths. Patient denies chest pain, lower extremity swelling, headache, dizziness or any other associated symptoms. Upon admission, initial labs showed elevated WBC at 12.3 and normal CMP with negative troponins and normal range lipase. Summary: Patient was kept nothing by mouth for on the and and abdominal. Septated than started clear liquid diet and advanced to soft diet, also treated with antibiotics IV ciprofloxacin and IV metronidazole, patient's all lab and vitals normalized, two the patient has no abdominal pain nausea or vomiting, patient does not have any fever or chills, patient is hemodynamically stable and tolerating soft food with, patient is going to be discharged home with ciprofloxacin p.o., Flagyl p.o., and Protonix p.o.. Strongly recommend patient to be followed up with GI, and PCP in 1-2 weeks Condition at Discharge: Stable Final Diagnosis/Problems List # Sepsis due to acute diverticulitis # intractable abdominal pain due to diverticulitis # Acute diverticulitis of the mid left colon Discharge Disposition: Home SNF Discharge Will this Physician continue t: No Discharge Instruct/Medications Diet: See Comment Diet comment: Soft diet for one week then resume regular diet Activity: No Restrictions, As Tolerated Follow Up/Referral: Follow up with GI outpatient Follow up with PCP in 1-2 weeks Medications: Ciprofloxacin 500 mg b.i.d. for 5 days Metronidazole 500 mg t.i.d. for 5 days Protonix 40 mg daily 30 days Discharge Statement: "Patient was advised to return to the ER or call 911 if any headaches, dizziness, shortness of breath, chest pain, abdominal pain, bleeding, fevers, or worsening of medical condition. Patient was counseled about treatment plan, medications, possible side effects, patientverbalized understanding. All questions were answered to the best of my ability. This discharge took greater then 30 minutes in planning, reviewing documentation, counseling the patient, and discussing with other team members." ASSESSMENT ASSESSMENT Assessment # Sepsis due to acute diverticulitis # intractable abdominal pain due to diverticulitis # Acute diverticulitis of the mid left colon Date of Service: Jan 27, 2025 Billing Provider: STEPHEN CHAVEZ MD Common Visit Codes: [id number]/OBS DISCH DAY >30min CRYSTAL LINN RESIDENT Jan 27, 2025 11:11 STEPHEN CHAVEZ MD Jan 27, 2025 21:53
[2025-01-27 12:04] VITALS: BP 130/89; PULSE 66; RESP 17; TEMP 97.2; O2SAT 100
[2025-01-27 13:00] VITALS: BP 130/89; PULSE 66; RESP 17; TEMP 97.2; O2SAT 100
== END 2025-01-27 13:00 | disposition home or self-care (01) | DRG 720 ==
LOC: ER 18:00 → OVERFLOW 21:22 → CENTRAL 21:25
PROVIDERS: ADMIT Internal Medicine Geriatric Medicine; ATTEND Emergency Medicine
DX: A41.9 Sepsis, unspecified organism (principal); K57.32 Diverticulitis of large intestine without perforation or abscess without bleeding; Z90.49 Acquired absence of other specified parts of digestive tract
CPT/HCPCS: 36415; 74176; 80048; 80053; 80061; 80307; 81001; 83036; 83605; 83690; 84484; 85025; 86803; 87040; 87340; 96365; 96375; 99291; G0378; J2405; J2470; J3490